=== PATIENT | female | born 2005 | race Two or more races ===

== ENCOUNTER 2023-12-16 18:34 | Emergency (ER) | payer MEDICAID, OTHER ==
[~2023-12-16] VITALS: Ht 149.9 cm; Wt 56.8 kg
[2023-12-16 19:46] LABS: Rapid Strep A Screen-Throat Positive
[2023-12-16 19:47] LABS: COVID19 ANTIGEN SOFIA FIA NEGATIVE (NEGATIVE)
[2023-12-16 20:04] LABS: Rapid Influenza A Negative (Negative); Rapid Influenza B Negative (Negative)
[2023-12-16] MEDS ORDERED: IBU600T PO (20:55)
[2023-12-16] MEDS ORDERED: AUG875T PO (20:55)
[2023-12-16] MEDS: DexAMETHasone SOD PHOS 10MG/1ML VIAL INJ IM ONE (20:56)
[2023-12-16] MEDS: IBUPROFEN 400 MG TAB PO ONE (21:04)
[2023-12-16] MEDS: ACETAMINOPHEN 500 MG TAB PO ONE (21:04)
[2023-12-16 21:39] VITALS: BP 101/57; PULSE 112; RESP 18; O2SAT 95
[2023-12-16 22:04] VITALS: TEMP 100.2
== END 2023-12-16 22:19 | disposition home or self-care (01) ==
LOC: ER 18:38
DX: J03.00 Acute streptococcal tonsillitis, unspecified (principal); Z20.822 Contact with and (suspected) exposure to COVID-19
CPT/HCPCS: 36415; 87426; 87804; 87880; 96372; 99283; J1100